=== PATIENT | female | born 1990 | race Caucasian/White ===

== ENCOUNTER → 2023-12-12 06:16 | Day surgery (SDC) | payer OTHER, SELFPAY | LOC: GI 06:16 | PROVIDERS: ATTENDING PHYSICIAN Internal Medicine Gastroenterology | DX: Z80.0 Family history of malignant neoplasm of digestive organs (principal); Z12.11 Encounter for screening for malignant neoplasm of colon; Z86.010 Personal history of colon polyps; K64.8 Other hemorrhoids | CPT/HCPCS: G0105 ==

== ENCOUNTER → 2025-03-08 06:44 | Outpatient (REF) | payer OTHER, SELFPAY | LOC: PNTC 06:44 | PROVIDERS: ATTENDING PHYSICIAN Obstetrics & Gynecology | DX: Z36.0 Encounter for antenatal screening for chromosomal anomalies (principal); Z36.82 Encounter for antenatal screening for nuchal translucency; O99.211 Obesity complicating pregnancy, first trimester; E66.9 Obesity, unspecified | CPT/HCPCS: 36415; 76801; 76813 ==

== ENCOUNTER → 2025-03-24 13:15 | Outpatient (REF) | payer OTHER, SELFPAY | LOC: PNTC 13:15 | PROVIDERS: ATTENDING PHYSICIAN Obstetrics & Gynecology | DX: O35.13X0 Maternal care for (suspected) chromosomal abnormality in fetus, Trisomy 21, not applicable or unspecified (principal); Z36.8A Encounter for antenatal screening for other genetic defects | CPT/HCPCS: 36415; 59000; 76946 ==